=== PATIENT | male | born 1970 | race Caucasian/White ===

== ENCOUNTER 2017-08-26 08:07 | Outpatient (CLI) | payer BC ==
--- NOTE | 2017-08-26 10:36 | ULT ---
ULTRASOUND GALLBLADDER RIGHT UPPER QUADRANT: Date: 08/26/17 HISTORY: Abnormal liver function tests. History of inflammatory bowel syndrome. COMPARISON: CT abdomen dated 01/13/15. FINDINGS: Visualized portion of pancreas unremarkable. Aorta is unremarkable. There is abnormal increased hepa tic echotexture with coarsening. The common bile duct measures 4.0 mm. Sonographic Hughes's sign is negative. Gallbladder wall thickness is normal. Right kidney measures 12.7 x 5.0 x 3.7 cm without mass, hydronephrosis, or abnormal calcifications. IMPRESSION: Increased hepatic echotexture suggests steatosis. No evidence of cholecystitis. POS: [facility]
== END 2017-08-26 08:08 | disposition home or self-care (01) ==
LOC: MADULT 08:07
PROVIDERS: ATTEND Internal Medicine Gastroenterology
DX: K58.9 Irritable bowel syndrome, unspecified (principal); R94.5 Abnormal results of liver function studies
CPT/HCPCS: 76705

== ENCOUNTER 2019-05-11 10:10 | Outpatient (CLI) | payer BC ==
--- NOTE | 2019-05-11 11:45 | ULT ---
US Renal Bilateral STANDARD HISTORY: Follow-up of right renal cyst. COMPARISON: CT examination of 01/13/2015. FINDINGS: Real-time imaging of the right and left kidneys were performed. The right kidney measures 1 3.3 cm, left kidney 12.4 cm in size. The indeterminate hypodense lesion involving the upper pole the right kidney seen on the 2015 CT examination is not definitely visualized on today's study. There are no signs of any solid mass or obstruction. Bladder region appears unremarkable no evidence of any post void residual. IMPRESSION: Unremarkable renal ultrasound. The hypodense lesion involving upper pole the right kidney noted on the previous CT is not definitely visualized on today's study. If indicated a follow-up CT examination to assess for stability would be suggested.
== END 2019-05-11 10:11 | disposition home or self-care (01) ==
LOC: MADULT 10:10
PROVIDERS: ATTEND Urology
DX: N28.1 Cyst of kidney, acquired (principal); N28.9 Disorder of kidney and ureter, unspecified
CPT/HCPCS: 76770

== ENCOUNTER 2022-03-27 11:27 | Emergency (ER) | payer OTHER ==
[2022-03-27] MEDS ORDERED: Ondansetron PF 4 MG/2 ML Vial ONE (12:03)
[2022-03-27] MEDS ORDERED: Sodium Chloride 0.9% 1,000 ML ONE (12:03)
[2022-03-27] MEDS ORDERED: Ketorolac Tromethamine 30 MG/ML VIAL ONE (12:03)
[2022-03-27 12:26] LABS: Bilirubin Negative (Negative); Blood, Urine Large (Negative); Clarity Hazy (Clear); Glucose, Urine (Dipstick) 100 mg/dL (Negative); Ketone, Urine 15 mg/dL (Negative); Leukocyte Negative (Negative); Nitrite Negative (Negative); Protein, Urine (Dipstick) 100 mg/dL (Neg-Trace); Specific Gravity, Urine 1.029 (1.002-1.036); Urobilinogen 0.2 mg/dL (Less than 2); pH, Urine 5.5 (5.0-9.0)
[2022-03-27 12:27] LABS: Bacteria/HPF Rare-Few HPF (None Seen); Calcium Oxalate Crystals 1+ HPF (None Seen); Mucous/LPF 2+ LPF (<2+); RBC/HPF Greater than 50 HPF (0-3); Squamous Epithelial 0-3 HPF (0-3)
[2022-03-27 12:46] LABS: ALT (SGPT) 26 U/L (8-55); AST (SGOT) 20 U/L (5-34); Albumin 4.6 g/dL (3.5-5.0); Alkaline Phosphatase 86 U/L (40-110); Anion Gap 22 mmol/L (10-20); BUN (Urea Nitrogen) 12 mg/dL (8.9-20.6); Bilirubin, Total 0.9 mg/dL (0.2-1.2); Calc. Creatinine Clearance 0 mL/min (70-130); Calcium 10.3 mg/dL (7.8-10.44); Carbon Dioxide 21 mmol/L (22-29); Chloride 100 mmol/L (98-107); Globulin 3.5 g/dL (2.4-3.5); Glucose 153 mg/dL (70-105); Potassium 3.7 mmol/L (3.5-5.1); Protein, Total 8.1 g/dL (6.0-8.3); Sodium 139 mmol/L (136-145)
[2022-03-27 12:58] LABS: #Basophils 0.2 thou/uL (0.0-0.2); #Eosinphils 0.1 thou/uL (0.0-0.7); #Lymphocytes 2.6 thou/uL (1.20-3.40); #Monocytes 0.7 thou/uL (0.11-0.59); %Basophils 1.3 % (0.0-1.0); %Monocytes 5.2 % (0.0-10.0); %Neutrophils 73.5 % (42.0-75.0); Hemoglobin 12.7 g/dL (14.0-18.0); Mean Corpuscular HGB CONC 29.8 g/dL (32.0-36.0); Mean Corpuscular Hemoglobin 18.1 pg (27.0-31.0); Mean Corpuscular Volume 60.7 fL (78.0-98.0); Mean Platelet Volume 8.9 fL (7.4-10.4); Platelet Count 390 thou/uL (130-400); RBC Distribution Width 13.1 % (11.5-14.5); White Blood Cell (WBC) Count 13.7 thou/uL (4.8-10.8)
[2022-03-27 13:06] LABS: Anisocytosis SLIGHT = 6-15 cells (100X) (0-5/hpf); Microcytosis SLIGHT = 6-15 cells (100X) (0-5/hpf); Platelet Morphology Comment Appears Adequate; Poikilocytosis SLIGHT = 6-15 cells (100X) (0-5/hpf)
== END 2022-03-27 13:55 | disposition home or self-care (01) ==
LOC: MADERS 11:27
DX: N20.2 Calculus of kidney with calculus of ureter (principal); E11.9 Type 2 diabetes mellitus without complications; I10 Essential (primary) hypertension; Z79.899 Other long term (current) drug therapy
CPT/HCPCS: 74176; 80053; 81003; 81015; 85025; 96374; 96375; J1885; J2405; J7050